=== PATIENT | male | born 1965 | race Caucasian/White ===

== ENCOUNTER 2019-10-17 02:15 | Observation (INO) | payer OTHER ==
[~2019-10-17] VITALS: Ht 182.9 cm; Wt 123.9 kg
--- NOTE | 2019-10-17 02:39 | NUR ---
PT CAME IN C/O FEELING "HEAVY HEARTBEAT" AFTER PLUGGING IN PD, ALSO FELT SOB. PLACED VITALS SIGNS MONITORING, SPOUSE AT BEDSIDE, SAFETY PRECAUTIONS IN PLACE.
[2019-10-17] MEDS ORDERED: ASPI-496 PO (02:45)
[2019-10-17] MEDS ORDERED: FURO20TA3 PO (02:45)
[2019-10-17] MEDS ORDERED: PLAVI (02:45)
[2019-10-17] MEDS ORDERED: CARV25TA12 PO ×2 (02:45→02:49)
[2019-10-17] MEDS ORDERED: POTASSIUM PO (02:45)
[2019-10-17] MEDS ORDERED: LOSA25TA25 PO (02:49)
[2019-10-17] MEDS ORDERED: CALCIT (02:49)
[2019-10-17] MEDS ORDERED: INSU100V35 SQ (02:49)
[2019-10-17] MEDS ORDERED: ATOR40TA78 PO (02:49)
[2019-10-17] MEDS ORDERED: CALCITRIOL PO (02:49)
[2019-10-17] MEDS ORDERED: PLAVIX PO (02:49)
[2019-10-17] MEDS ORDERED: SODIUM CHLORIDE FLUSH 10ML SYR IVF ONE (03:30)
[2019-10-17 03:43] LABS: BASOPHILS # (AUTO) 0.05 x10^3/uL (0-0.1); BASOPHILS % (AUTO) 0 % (0-1); EOSINOPHILS % (AUTO) 3 % (1-7); LYMPHOCYTES # (AUTO) 1.25 x10^3/uL (1-3.4); LYMPHOCYTES % (AUTO) 10 % (22-44); MD NO; MEAN CORPUSCULAR HEMOGLOBIN 31.1 pg (27.5-34.5); MEAN CORPUSCULAR HGB CONC 32.1 g/dL (33.2-36.2); MEAN PLATELET VOLUME 8.4 fL (7.4-10.4); MONOCYTES # (AUTO) 0.71 x10^3/uL (0.2-0.8); MONOCYTES % (AUTO) 6 % (2-9); NEUTROPHILS # (AUTO) 9.76 x10^3/uL (1.8-6.8); NEUTROPHILS % (AUTO) 81 % (42-75); PLATELET COUNT 335 x10^3/uL (130-400); RED BLOOD COUNT 2.64 x10^6/uL (4.38-5.82); RED CELL DISTRIBUTION WIDTH 18.1 % (9.4-14.8)
[2019-10-17 03:48] LABS: ALANINE AMINOTRANSFERASE 32 U/L (12-78); ALBUMIN 2.8 g/dL (3.4-5.0); ANION GAP 11 mmol/L (5-15); CALCIUM 9.7 mg/dL (8.5-10.1); CHLORIDE 96 mmol/L (98-107)
[2019-10-17 03:53] LABS: ALKALINE PHOSPHATASE 98 U/L (45-117); BILIRUBIN,TOTAL 0.3 mg/dL (0.2-1.0); TOTAL PROTEIN 7.6 g/dL (6.4-8.2); TROPONIN I 0.076 ng/mL (0.000-0.045)
--- NOTE | 2019-10-17 04:28 | NUR ---
PT RESTING ON GURNEY, NO ACUTE DISTRESS NOTED, SAFETY PRECAUTIONS IMPLEMENTED. SPOUSE AT BEDSIDE.
[2019-10-17] MEDS ORDERED: POLYETHYLENE GLYCOL 17 GM PACKET PO PRN (05:00)
[2019-10-17] MEDS ORDERED: ONDANSETRON 2MG/ML, 2ML IVPush PRN (05:00)
[2019-10-17] MEDS ORDERED: ACETAMINOPHEN 325 MG TABLET PO PRN (05:00)
[2019-10-17] MEDS ORDERED: hydrALAzine 20 MG/ML, 1ML IVPush PRN (05:00)
[2019-10-17] MEDS ORDERED: morphine SULFATE 10 MG/ML, 1ML IVPush PRN (05:00)
--- NOTE | 2019-10-17 05:17 | NUR ---
REPORT GIVEN TO [facility].
[2019-10-17 05:33] LABS: TROPONIN I 0.072 ng/mL (0.000-0.045)
[2019-10-17 05:42] VITALS: BP 127/66
[2019-10-17] MEDS: HEPARIN 5,000 UNITS/ML, 1ML SQ SCH ×3 (05:53→21:56)
[2019-10-17 05:55] VITALS: BP 127/66
[2019-10-17 07:29] VITALS: BP 124/74
[2019-10-17] MEDS ORDERED: REGADENOSON 0.4 MG/5 ML SYRINGE ONE (08:02)
[2019-10-17] MEDS: PANTOPROZOLE 40MG TABLET PO SCH (09:35)
[2019-10-17] MEDS: ASPIRIN 81 MG TABLET EC PO SCH (09:36)
[2019-10-17] MEDS: CARVEDILOL 12.5 MG TABLET PO SCH ×2 (09:37→21:56)
[2019-10-17] MEDS: FUROSEMIDE 40 MG TABLET PO SCH ×2 (09:37→21:55)
[2019-10-17] MEDS: INSULIN LISPRO 100 UNITS/ML, PEN SQ-INSULIN SCH ×4 (09:39→21:57)
[2019-10-17 11:17] LABS: TROPONIN I 0.053 ng/mL (0.000-0.045)
[2019-10-17 14:51] VITALS: BP 127/74
[2019-10-17] MEDS ORDERED: CALC667C PO (17:23)
[2019-10-17] MEDS: CALCIUM ACETATE 667 MG CAPSULE PO SCH (18:24)
[2019-10-17 19:56] VITALS: BP 152/83
[2019-10-17] MEDS ORDERED: DARBEPOETIN 100 MCG/ML SQ SCH (20:00)
[2019-10-17] MEDS ORDERED: POTASSIUM CHLORIDE 20 MEQ TAB.ER.PRT PO ONE (20:00)
[2019-10-17 20:59] VITALS: BP 151/79
[2019-10-17] MEDS ORDERED: ATORVASTATIN 80 MG TABLET PO SCH (21:00)
[2019-10-17] MEDS ORDERED: INSULIN DEGLUDEC 65 UNIT SQ SCH (21:00)
[2019-10-17] MEDS ORDERED: LOSARTAN 25MG TABLET PO SCH (21:00)
[2019-10-18 00:21] VITALS: BP 137/69
[2019-10-18] MEDS: HEPARIN 5,000 UNITS/ML, 1ML SQ SCH (05:51)
[2019-10-18 06:24] LABS: BASOPHILS # (AUTO) 0.04 x10^3/uL (0-0.1); BASOPHILS % (AUTO) 0 % (0-1); EOSINOPHILS # (AUTO) 0.24 x10^3/uL (0-0.4); EOSINOPHILS % (AUTO) 2 % (1-7); LYMPHOCYTES # (AUTO) 1.04 x10^3/uL (1-3.4); LYMPHOCYTES % (AUTO) 10 % (22-44); MD NO; MEAN CORPUSCULAR HEMOGLOBIN 31.5 pg (27.5-34.5); MEAN CORPUSCULAR HGB CONC 32.3 g/dL (33.2-36.2); MEAN CORPUSCULAR VOLUME 97.3 fL (81-97); MEAN PLATELET VOLUME 8.5 fL (7.4-10.4); MONOCYTES # (AUTO) 0.53 x10^3/uL (0.2-0.8); MONOCYTES % (AUTO) 5 % (2-9); NEUTROPHILS # (AUTO) 8.66 x10^3/uL (1.8-6.8); NEUTROPHILS % (AUTO) 82 % (42-75); PLATELET COUNT 334 x10^3/uL (130-400); RED BLOOD COUNT 2.53 x10^6/uL (4.38-5.82); RED CELL DISTRIBUTION WIDTH 18.8 % (9.4-14.8)
[2019-10-18 06:36] LABS: ANION GAP 11 mmol/L (5-15); CALCIUM 9.3 mg/dL (8.5-10.1); CHLORIDE 96 mmol/L (98-107)
[2019-10-18 06:43] LABS: % IRON SATURATION 36 % (20-55); IRON LEVEL 50 mcg/dL (65-175); TOTAL IRON BINDING CAPACITY 140 mcg/dL (250-450)
[2019-10-18 06:55] VITALS: BP 135/77
[2019-10-18] MEDS: CALCIUM ACETATE 667 MG CAPSULE PO SCH ×2 (08:25→13:53)
[2019-10-18] MEDS ORDERED: CLOPIDOGREL 75 MG TABLET PO SCH (09:00)
[2019-10-18] MEDS ORDERED: INSULIN GLARGINE 100 UNITS/ML, PEN SQ-INSULIN SCH (09:00)
[2019-10-18] MEDS ORDERED: POTASSIUM CHLORIDE 20 MEQ TAB.ER.PRT PO SCH (09:00)
[2019-10-18] MEDS: PANTOPROZOLE 40MG TABLET PO SCH (09:37)
[2019-10-18] MEDS: ASPIRIN 81 MG TABLET EC PO SCH (09:37)
[2019-10-18] MEDS: CARVEDILOL 12.5 MG TABLET PO SCH (09:37)
[2019-10-18] MEDS: FUROSEMIDE 40 MG TABLET PO SCH (09:38)
[2019-10-18] MEDS: INSULIN LISPRO 100 UNITS/ML, PEN SQ-INSULIN SCH ×2 (09:41→13:53)
[2019-10-18 12:51] VITALS: BP 138/78
[2019-10-18] MEDS ORDERED: CALC667C PO (16:19)
[2019-10-18] MEDS ORDERED: CALCITRIOL 0.25 MCG CAPSULE PO SCH (21:00)
[2019-10-18] MEDS ORDERED: LOSARTAN 25MG TABLET PO SCH (21:00)
[2019-10-21] MEDS ORDERED: CALCITRIOL 0.25 MCG CAPSULE PO SCH (21:00)
[2019-10-23] MEDS ORDERED: CALCITRIOL 0.25 MCG CAPSULE PO SCH (18:00)
== END 2019-10-18 17:18 | disposition home or self-care (01) ==
LOC: ED 04:37 → EDIP 05:16 → INTOOBSV 05:16 → 4WST 05:31 → DCLOUNGE 10-18 17:01
PROVIDERS: ADMIT Hospitalist; ATTEND Hospitalist
DX: R07.9 Chest pain, unspecified (principal); E11.22 Type 2 diabetes mellitus with diabetic chronic kidney disease; E11.65 Type 2 diabetes mellitus with hyperglycemia; E78.5 Hyperlipidemia, unspecified; I50.43 Acute on chronic combined systolic (congestive) and diastolic (congestive) heart failure; E87.6 Hypokalemia; E88.89 Other specified metabolic disorders; D63.1 Anemia in chronic kidney disease; I21.9 Acute myocardial infarction, unspecified; I13.2 Hypertensive heart and chronic kidney disease with heart failure and with stage 5 chronic kidney disease, or end stage renal disease; I25.10 Atherosclerotic heart disease of native coronary artery without angina pectoris; I25.5 Ischemic cardiomyopathy; N18.6 End stage renal disease; Z79.4 Long term (current) use of insulin; Z99.2 Dependence on renal dialysis; Z95.1 Presence of aortocoronary bypass graft
CPT/HCPCS: 36415; 71045; 78452; 80048; 80053; 82306; 82728; 82962; 83036; 83540; 83550; 83735; 83880; 83970; 84100; 84484; 85025; 86704; 86705; 87340; 93005; 93017; 96372; 99285; A9502; C8929; C9898; G0378; J1644; J1815; J2785; Q9957; 90945

== ENCOUNTER 2020-01-29 08:48 | Day surgery (SDC) | payer OTHER ==
[2020-01-27 10:50] LABS: BASOPHILS # (AUTO) 0.04 x10^3/uL (0-0.1); BASOPHILS % (AUTO) 0 % (0-1); EOSINOPHILS % (AUTO) 2 % (1-7); LYMPHOCYTES # (AUTO) 1.09 x10^3/uL (1-3.4); LYMPHOCYTES % (AUTO) 10 % (22-44); MD NO; MEAN CORPUSCULAR HEMOGLOBIN 29.8 pg (27.5-34.5); MEAN CORPUSCULAR VOLUME 93.1 fL (81-97); MEAN PLATELET VOLUME 7.9 fL (7.4-10.4); MONOCYTES # (AUTO) 0.68 x10^3/uL (0.2-0.8); MONOCYTES % (AUTO) 6 % (2-9); NEUTROPHILS # (AUTO) 9.47 x10^3/uL (1.8-6.8); NEUTROPHILS % (AUTO) 83 % (42-75); PLATELET COUNT 353 x10^3/uL (130-400); RED BLOOD COUNT 3.72 x10^6/uL (4.38-5.82); RED CELL DISTRIBUTION WIDTH 19.4 % (9.4-14.8)
[2020-01-27 11:00] LABS: INTERNATIONAL NORMALIZED RATIO 0.97 (0.93-1.1); PROTHROMBIN TIME 10.3 Seconds (9.6-11.5)
[2020-01-27 11:02] LABS: ALANINE AMINOTRANSFERASE 108 U/L (12-78); ALBUMIN 2.5 g/dL (3.4-5.0); ANION GAP 12 mmol/L (5-15); CALCIUM 10.4 mg/dL (8.5-10.1); CHLORIDE 96 mmol/L (98-107); CREATININE 8.95 mg/dL (0.7-1.3)
[2020-01-27 11:04] LABS: ALKALINE PHOSPHATASE 161 U/L (45-117); BILIRUBIN,TOTAL 0.4 mg/dL (0.2-1.0); TOTAL PROTEIN 7.8 g/dL (6.4-8.2)
[~2020-01-29] VITALS: Ht 182.9 cm; Wt 113.0 kg
[~2020-01-29 08:48] MED LIST: ASPI-496 PO; ATOR40TA78 PO; CALC0.25 PO; CALC667C PO; CALCIT; CALCITRIOL PO; CARV25TA12 PO; CLOP75TA52 PO; ERGO500017 PO; FURO20TA3 PO; INSU100V35 SQ; LOSA25TA25 PO; PLAVI; PLAVIX PO; POTA20TA89 PO; POTASSIUM PO
[2020-01-29] MEDS ORDERED: LACTATED RINGERS 1,000 ML IV SCH (09:32)
[2020-01-29 09:36] VITALS: BP 151/96
[2020-01-29] MEDS ORDERED: CHLORHEXIDINE 15 ML UDC MM ONE (10:00)
[2020-01-29] MEDS ORDERED: FENTANYL PF 100 MCG/2ML ONE (10:31)
[2020-01-29] MEDS ORDERED: MIDAZOLAM 1 MG/ML, 2ML ONE (10:31)
[2020-01-29] MEDS ORDERED: LIDOCAINE 1%, 20ML ONE (10:39)
[2020-01-29] MEDS ORDERED: BUPIVACAINE 0.25% ONE (10:39)
[2020-01-29] MEDS ORDERED: PROPOFOL 10 MG/ML, 20ML ONE (11:43)
[2020-01-29] MEDS ORDERED: FENTANYL PF 100 MCG/2ML IV PRN (12:00)
[2020-01-29] MEDS ORDERED: PROMETHAZINE 25 MG/ML, 1ML IVPush PRN (12:00)
[2020-01-29] MEDS ORDERED: HYDROmorphone 1 MG/ML, 1ML INJ IVPush PRN (12:00)
[2020-01-29] MEDS ORDERED: LABETALOL 5MG/ML, 20ML IV PRN (12:00)
[2020-01-29] MEDS ORDERED: hydrALAzine 20 MG/ML, 1ML IV PRN (12:00)
[2020-01-29] MEDS ORDERED: HALOPERIDOL 5 MG/ML IV PRN (12:00)
[2020-01-29] MEDS ORDERED: OXYcodone 5 MG/5 ML ORAL.SOL UDC PO PRN (12:00)
[2020-01-29] MEDS ORDERED: DIPHENHYDRAMINE 50 MG/ML, 1ML IVPush PRN (12:00)
[2020-01-29] MEDS ORDERED: MEPERIDINE/PF 25MG/0.5ML IVPush PRN (12:00)
== END 2020-01-29 13:25 | disposition home or self-care (01) ==
LOC: OUT 08:48
PROVIDERS: ATTEND Orthopaedic Surgery
DX: E83.59 Other disorders of calcium metabolism (principal); Z11.59 Encounter for screening for other viral diseases; E11.22 Type 2 diabetes mellitus with diabetic chronic kidney disease; I12.0 Hypertensive chronic kidney disease with stage 5 chronic kidney disease or end stage renal disease; N18.6 End stage renal disease; I25.10 Atherosclerotic heart disease of native coronary artery without angina pectoris; E78.5 Hyperlipidemia, unspecified; Z79.01 Long term (current) use of anticoagulants; Z79.82 Long term (current) use of aspirin; Z79.84 Long term (current) use of oral hypoglycemic drugs; Z79.899 Other long term (current) drug therapy; Z91.018 Allergy to other foods; Z95.1 Presence of aortocoronary bypass graft; Z99.2 Dependence on renal dialysis; Z98.890 Other specified postprocedural states; Z82.49 Family history of ischemic heart disease and other diseases of the circulatory system
CPT/HCPCS: 26115; 36415; 80053; 82962; 85025; 85610; 85730; 87635; 88305; 93005; J2250; J2704; J3010; J3490; J7120; U0001

== ENCOUNTER → 2020-09-17 | Outpatient (CLI) | payer OTHER ==
[~2020-09-17] MED LIST changes: +ASPI81TA45 PO; +EPO SC; +FAMO-79 PO; +LIRA0.6P SC
[2020-09-17 16:34] LABS: ALANINE AMINOTRANSFERASE 54 U/L (12-78); ALBUMIN 2.3 g/dL (3.4-5.0); ANION GAP 8 mmol/L (5-15); CALCIUM 8.7 mg/dL (8.5-10.1); CHLORIDE 96 mmol/L (98-107); CREATININE 7.95 mg/dL (0.7-1.3)
[2020-09-17 16:37] LABS: ALKALINE PHOSPHATASE 168 U/L (45-117); BILIRUBIN,TOTAL 0.3 mg/dL (0.2-1.0); TOTAL PROTEIN 7.1 g/dL (6.4-8.2)
== END | disposition home or self-care (01) ==
LOC: STAR 14:54
PROVIDERS: ATTEND Orthopaedic Surgery
DX: Z01.818 Encounter for other preprocedural examination (principal); E83.59 Other disorders of calcium metabolism; I44.7 Left bundle-branch block, unspecified; Z20.822 Contact with and (suspected) exposure to COVID-19
CPT/HCPCS: 80053; 87635; 93005

== ENCOUNTER 2021-01-30 02:02 | Emergency (ER) | payer OTHER ==
[~2021-01-30] VITALS: Ht 182.9 cm; Wt 112.4 kg
[~2021-01-30 02:02] MED LIST changes: +CALC200T3 PO; +LANT500T PO
--- NOTE | 2021-01-30 02:23 | NUR ---
PT BIB [facility], PT STARTED KEFLEX LAST NIGHT AT 2100, AROUND 0000 TODAY PT STARTED FEELING ITCHY AND NOTICED RASH. PT TOOK 50 MG OF BENADRYL AT HOME, PT STARTED FEELING TIGHTNESS WHILE BREATHING. PT ON KIANA, EKG PERFORMED, GOWN ON AND PLACED ON CONTINUOUS MONITORING.
[2021-01-30] MEDS ORDERED: methylPREDNISolone SOD SUCC 125 MG/2 ML IVPush ONE (02:30)
[2021-01-30] MEDS ORDERED: FAMOTIDINE 20 MG/2 ML IVPush ONE (02:30)
[2021-01-30] MEDS ORDERED: FAMOTIDINE 20 MG/2 ML ONE (02:54)
[2021-01-30] MEDS ORDERED: EPINEPHRINE 1 MG/ML, 1ML ONE (02:54)
[2021-01-30] MEDS ORDERED: methylPREDNISolone SOD SUCC 125 MG/2 ML ONE (02:54)
[2021-01-30] MEDS ORDERED: ALBUTEROL SULFATE 2.5 MG/3 ML ONE (02:54)
[2021-01-30] MEDS ORDERED: ALBUTEROL SULFATE 2.5 MG/3 ML NPPB ONE (03:00)
[2021-01-30] MEDS ORDERED: SODIUM CHLORIDE FLUSH 10ML SYR IVF ONE (03:00)
[2021-01-30] MEDS ORDERED: SODIUM CHLORIDE 0.9% 1,000ML IVBOLUS ONE (03:00)
[2021-01-30] MEDS ORDERED: EPINEPHRINE 1 MG/ML, 1ML SQ ONE (03:00)
[2021-01-30 03:09] LABS: ALANINE AMINOTRANSFERASE 43 U/L (12-78); ALBUMIN 1.9 g/dL (3.4-5.0); ANION GAP 18 mmol/L (5-15); CHLORIDE 89 mmol/L (98-107); CREATININE 7.35 mg/dL (0.7-1.3)
[2021-01-30 03:13] LABS: ALKALINE PHOSPHATASE 172 U/L (45-117); BILIRUBIN,TOTAL 0.5 mg/dL (0.2-1.0); TOTAL PROTEIN 6.8 g/dL (6.4-8.2); TROPONIN I 0.055 ng/mL (0.000-0.045)
[2021-01-30 03:14] LABS: BASOPHILS % (AUTO) 1 % (0-1); EOSINOPHILS % (AUTO) 1 % (1-7); LYMPHOCYTES % (AUTO) 11 % (22-44); MEAN CORPUSCULAR HEMOGLOBIN 29.2 pg (27.5-34.5); MEAN CORPUSCULAR HGB CONC 33.2 g/dL (33.2-36.2); MONOCYTES % (AUTO) 3 % (2-9); NEUTROPHILS % (AUTO) 85 % (42-75); PLATELET COUNT 478 x10^3/uL (130-400); RED BLOOD COUNT 4.03 x10^6/uL (4.38-5.82)
[2021-01-30 03:16] VITALS: BP 107/63
[2021-01-30] MEDS ORDERED: ASPIRIN 325 MG TABLET ONE (03:36)
--- NOTE | 2021-01-30 03:50 | NUR ---
ERP AT BEDSIDE, PT WANTS TO GO HOME, ERP CANCELED ASPIRIN ORDER.
[2021-01-30] MEDS ORDERED: ASPIRIN 325 MG TABLET PO ONE (04:00)
--- NOTE | 2021-01-30 04:04 | NUR ---
Mario given discharge instructions and they have confirmed that they understand the instructions. Patient ambulatory with steady gait.
== END 2021-01-30 04:06 | disposition home or self-care (01) ==
LOC: ED 03:15
DX: R07.2 Precordial pain (principal); R06.00 Dyspnea, unspecified; T36.1X5A Adverse effect of cephalosporins and other beta-lactam antibiotics, initial encounter; J98.01 Acute bronchospasm; L50.0 Allergic urticaria; I49.3 Ventricular premature depolarization; I25.2 Old myocardial infarction; I50.9 Heart failure, unspecified; Z95.1 Presence of aortocoronary bypass graft
CPT/HCPCS: 36415; 71045; 80053; 84484; 85025; 93005; 94640; 96361; 96372; 96374; 96375; 99285; J0171; J2930; J7030; J7613

== ENCOUNTER 2021-02-01 11:23 | Inpatient (IN) | payer OTHER ==
[~2021-02-01] VITALS: Ht 182.9 cm; Wt 133.8 kg
[2021-02-01 12:52] LABS: BASOPHILS % (AUTO) 0 % (0-1); EOSINOPHILS % (AUTO) 1 % (1-7); LYMPHOCYTES % (AUTO) 7 % (22-44); MEAN PLATELET VOLUME 7.8 fL (7.4-10.4); MONOCYTES % (AUTO) 6 % (2-9); NEUTROPHILS % (AUTO) 87 % (42-75); PLATELET COUNT 391 x10^3/uL (130-400); RED BLOOD COUNT 3.17 x10^6/uL (4.38-5.82); RED CELL DISTRIBUTION WIDTH 17.4 % (9.4-14.8)
[2021-02-01 13:00] LABS: ANION GAP 13 mmol/L (5-15); CALCIUM 7.5 mg/dL (8.5-10.1); CHLORIDE 92 mmol/L (98-107)
[2021-02-01] MEDS ORDERED: PIPERACILLIN/TAZO 3.375 GM in DEXTROSE 5% 50 ML IVPB ONE (13:00)
[2021-02-01 13:03] LABS: ALANINE AMINOTRANSFERASE 46 U/L (12-78); ALKALINE PHOSPHATASE 139 U/L (45-117); BILIRUBIN,TOTAL 0.4 mg/dL (0.2-1.0); CREATININE 7.36 mg/dL (0.7-1.3); TOTAL PROTEIN 6.5 g/dL (6.4-8.2)
[2021-02-01 13:10] LABS: INTERNATIONAL NORMALIZED RATIO 1.22 (0.93-1.1)
[2021-02-01 13:47] LABS: HCT (SEDRATE) 27.8 % (39.2-51.8)
[2021-02-01] MEDS ORDERED: PHARMACY MAY ADJ FOR RENAL FX MC PRN (14:00)
[2021-02-01] MEDS ORDERED: DOCUSATE 100 MG CAPSULE PO PRN (14:00)
[2021-02-01] MEDS ORDERED: MELATONIN 5 MG TABLET PO PRN (14:00)
[2021-02-01] MEDS ORDERED: BISACODYL 10 MG SUPP PR PRN (14:00)
[2021-02-01] MEDS ORDERED: POLYETHYLENE GLYCOL 17 GM PACKET PO PRN (14:00)
[2021-02-01] MEDS ORDERED: ONDANSETRON ODT 4 MG PO PRN (14:00)
[2021-02-01] MEDS ORDERED: DEXTROSE 50%, 50ML SYRINGE IVPush PRN (15:30)
[2021-02-01] MEDS ORDERED: DEXTROSE 4 GM TAB.CHEW PO PRN (15:30)
[2021-02-01] MEDS ORDERED: GLUCAGON 1 MG IM PRN (15:30)
[2021-02-01] MEDS ORDERED: CINA30TA6 PO (15:56)
[2021-02-01] MEDS ORDERED: CALC0.5C2 PO (15:56)
[2021-02-01] MEDS: INSULIN LISPRO 100 UNITS/ML, PEN SQ-INSULIN SCH ×2 (16:00→21:00)
[2021-02-01 16:45] VITALS: BP 123/71
[2021-02-01] MEDS: ERGOCALCIFEROL 50,000 UNIT CAPSULE PO SCH (17:33)
[2021-02-01] MEDS: CALCIUM CARBONATE 500 MG TAB.CHEW PO SCH (17:33)
[2021-02-01] MEDS: HEPARIN 5,000 UNITS/ML, 1ML SQ SCH (17:33)
[2021-02-01] MEDS: SEVELAMER CARBONATE 800MG TAB PO SCH (18:07)
[2021-02-01 19:34] VITALS: BP 117/70
[2021-02-01 20:50] VITALS: BP 117/68
[2021-02-01] MEDS: ATORVASTATIN 80 MG TABLET PO SCH (20:54)
[2021-02-01] MEDS: CALCITRIOL 0.25 MCG CAPSULE PO SCH (20:54)
[2021-02-01] MEDS: CARVEDILOL 12.5 MG TABLET PO SCH (20:54)
[2021-02-01] MEDS: LOSARTAN 25MG TABLET PO SCH (20:55)
[2021-02-01] MEDS: SODIUM CHLORIDE FLUSH 10ML SYR IVF SCH (20:55)
[2021-02-01] MEDS: ACETAMINOPHEN 325 MG TABLET PO PRN (20:56)
[2021-02-01] MEDS: INSULIN GLARGINE 100 UNITS/ML, PEN SQ-INSULIN SCH (21:00)
[2021-02-01] MEDS ORDERED: PIPERACILLIN/TAZO 3.375 GM in DEXTROSE 5% 50 ML IVPB SCH (21:00)
[2021-02-01] MEDS: PIPERACILLIN/TAZO 2.25 GM in DEXTROSE 5% 50 ML IVPB SCH (21:17)
[2021-02-02] MEDS ORDERED: GENTAMICIN CRM 0.1%, 30GM TP PRN (00:30)
[2021-02-02] MEDS: HEPARIN 5,000 UNITS/ML, 1ML SQ SCH ×3 (01:38→20:51)
[2021-02-02 01:59] VITALS: BP 138/80
[2021-02-02] MEDS: PIPERACILLIN/TAZO 2.25 GM in DEXTROSE 5% 50 ML IVPB SCH ×3 (04:52→20:48)
[2021-02-02 05:13] LABS: BASOPHILS % (AUTO) 0 % (0-1); EOSINOPHILS % (AUTO) 2 % (1-7); LYMPHOCYTES % (AUTO) 5 % (22-44); MEAN CORPUSCULAR HEMOGLOBIN 28.8 pg (27.5-34.5); MEAN CORPUSCULAR HGB CONC 32.7 g/dL (33.2-36.2); MEAN PLATELET VOLUME 8.1 fL (7.4-10.4); MONOCYTES % (AUTO) 5 % (2-9); NEUTROPHILS % (AUTO) 87 % (42-75); PLATELET COUNT 355 x10^3/uL (130-400); RED BLOOD COUNT 3.13 x10^6/uL (4.38-5.82); RED CELL DISTRIBUTION WIDTH 17.9 % (9.4-14.8)
[2021-02-02 05:25] LABS: % IRON SATURATION 27 % (20-55); ANION GAP 13 mmol/L (5-15); CALCIUM 7.5 mg/dL (8.5-10.1); CHLORIDE 92 mmol/L (98-107); CREATININE 7.58 mg/dL (0.7-1.3); IRON LEVEL 30 mcg/dL (65-175); TOTAL IRON BINDING CAPACITY 112 mcg/dL (250-450)
[2021-02-02] MEDS: INSULIN LISPRO 100 UNITS/ML, PEN SQ-INSULIN SCH ×4 (07:00→20:38)
[2021-02-02 08:32] VITALS: BP 125/73
[2021-02-02] MEDS: SODIUM CHLORIDE FLUSH 10ML SYR IVF SCH ×2 (09:00→20:49)
[2021-02-02] MEDS: CALCITRIOL 0.25 MCG CAPSULE PO SCH ×2 (09:00→20:50)
[2021-02-02] MEDS ORDERED: ARANESP 60 MCG/ML **ESRD SQ SCH (10:30)
[2021-02-02] MEDS: CALCIUM CARBONATE 500 MG TAB.CHEW PO SCH ×3 (11:00→17:34)
[2021-02-02] MEDS: ASPIRIN 81 MG TABLET EC PO SCH (11:11)
[2021-02-02] MEDS: CARVEDILOL 12.5 MG TABLET PO SCH ×2 (11:12→21:20)
[2021-02-02] MEDS: FAMOTIDINE 20 MG TABLET PO SCH (11:12)
[2021-02-02] MEDS: CLOPIDOGREL 75 MG TABLET PO SCH (11:12)
[2021-02-02] MEDS: LOSARTAN 25MG TABLET PO SCH ×2 (11:14→21:20)
[2021-02-02] MEDS: SEVELAMER CARBONATE 800MG TAB PO SCH ×3 (11:14→17:35)
[2021-02-02 14:41] VITALS: BP 124/68
[2021-02-02 19:27] VITALS: BP 127/80
[2021-02-02] MEDS: INSULIN GLARGINE 100 UNITS/ML, PEN SQ-INSULIN SCH (20:38)
[2021-02-02] MEDS: ATORVASTATIN 80 MG TABLET PO SCH (20:50)
[2021-02-02 21:03] VITALS: BP 145/80
[2021-02-02 22:17] LABS: CLOSTRIDIUM DIFFICILE ANTIGEN NEGATIVE; CLOSTRIDIUM DIFFICILE TOXIN NEGATIVE (Negative)
[2021-02-02] MEDS ORDERED: LOPERAMIDE 2 MG CAPSULE PO ONE (23:00)
[2021-02-03 00:52] VITALS: BP 151/65
[2021-02-03] MEDS ORDERED: LOPERAMIDE 2 MG CAPSULE PO ONE (02:30)
[2021-02-03] MEDS: PIPERACILLIN/TAZO 2.25 GM in DEXTROSE 5% 50 ML IVPB SCH ×3 (04:50→21:59)
[2021-02-03] MEDS: HEPARIN 5,000 UNITS/ML, 1ML SQ SCH ×3 (04:52→21:00)
[2021-02-03 05:16] LABS: BASOPHILS % (AUTO) 1 % (0-1); EOSINOPHILS % (AUTO) 2 % (1-7); LYMPHOCYTES % (AUTO) 6 % (22-44); MEAN CORPUSCULAR HEMOGLOBIN 29.3 pg (27.5-34.5); MEAN CORPUSCULAR HGB CONC 32.9 g/dL (33.2-36.2); MEAN PLATELET VOLUME 7.9 fL (7.4-10.4); MONOCYTES % (AUTO) 5 % (2-9); NEUTROPHILS % (AUTO) 87 % (42-75); PLATELET COUNT 326 x10^3/uL (130-400); RED BLOOD COUNT 2.96 x10^6/uL (4.38-5.82); RED CELL DISTRIBUTION WIDTH 18.2 % (9.4-14.8)
[2021-02-03 05:18] LABS: ALBUMIN 1.7 g/dL (3.4-5.0); ANION GAP 13 mmol/L (5-15); CALCIUM 7.5 mg/dL (8.5-10.1); CHLORIDE 94 mmol/L (98-107)
[2021-02-03 05:22] LABS: ALANINE AMINOTRANSFERASE 32 U/L (12-78); ALKALINE PHOSPHATASE 121 U/L (45-117); BILIRUBIN,TOTAL 0.4 mg/dL (0.2-1.0); TOTAL PROTEIN 5.9 g/dL (6.4-8.2)
[2021-02-03] MEDS ORDERED: POTASSIUM CHLORIDE 20 MEQ TAB.ER.PRT PO ONE ×2 (06:07→06:30)
[2021-02-03 07:11] VITALS: BP 122/79
[2021-02-03] MEDS: INSULIN LISPRO 100 UNITS/ML, PEN SQ-INSULIN SCH ×4 (07:49→21:54)
[2021-02-03] MEDS: GENTAMICIN CRM 0.1%, 30GM TP SCH (09:00)
[2021-02-03] MEDS: LOSARTAN 25MG TABLET PO SCH ×2 (09:11→21:00)
[2021-02-03] MEDS: CALCIUM CARBONATE 500 MG TAB.CHEW PO SCH ×3 (09:11→17:59)
[2021-02-03] MEDS: FAMOTIDINE 20 MG TABLET PO SCH (09:12)
[2021-02-03] MEDS: ASPIRIN 81 MG TABLET EC PO SCH ×2 (09:12→13:07)
[2021-02-03] MEDS: CLOPIDOGREL 75 MG TABLET PO SCH ×2 (09:12→13:07)
[2021-02-03] MEDS: SEVELAMER CARBONATE 800MG TAB PO SCH ×3 (10:13→17:59)
[2021-02-03] MEDS: CALCITRIOL 0.25 MCG CAPSULE PO SCH ×2 (10:13→22:00)
[2021-02-03] MEDS: CARVEDILOL 12.5 MG TABLET PO SCH ×2 (10:14→21:00)
[2021-02-03] MEDS: SODIUM CHLORIDE FLUSH 10ML SYR IVF SCH ×2 (10:15→21:59)
[2021-02-03 12:32] VITALS: BP 108/66
[2021-02-03] MEDS ORDERED: MIDAZOLAM 1 MG/ML, 2ML ONE (13:44)
[2021-02-03] MEDS ORDERED: FENTANYL PF 100 MCG/2ML ONE ×2 (13:44→16:35)
[2021-02-03] MEDS ORDERED: LIDOCAINE 2%, 20ML ONE (13:54)
[2021-02-03] MEDS ORDERED: HEPARIN 1,000 UNITS/ML, 10ML ONE (15:14)
[2021-02-03] MEDS: LACTOBACILLUS CHEW TABLET PO SCH ×2 (17:59→21:59)
[2021-02-03] MEDS: ACETAMINOPHEN 325 MG TABLET PO PRN (20:20)
[2021-02-03 20:37] VITALS: BP 97/43
[2021-02-03] MEDS: INSULIN GLARGINE 100 UNITS/ML, PEN SQ-INSULIN SCH (21:55)
[2021-02-03] MEDS: ATORVASTATIN 80 MG TABLET PO SCH (21:59)
[2021-02-04 02:02] VITALS: BP 107/68
[2021-02-04] MEDS: HEPARIN 5,000 UNITS/ML, 1ML SQ SCH ×3 (05:00→20:24)
[2021-02-04 05:10] LABS: HCT (SEDRATE) 24.3 % (39.2-51.8)
[2021-02-04 05:12] LABS: BASOPHILS % (AUTO) 1 % (0-1); EOSINOPHILS % (AUTO) 2 % (1-7); LYMPHOCYTES % (AUTO) 6 % (22-44); MEAN CORPUSCULAR HEMOGLOBIN 29.3 pg (27.5-34.5); MEAN PLATELET VOLUME 8.1 fL (7.4-10.4); MONOCYTES % (AUTO) 5 % (2-9); NEUTROPHILS % (AUTO) 87 % (42-75); PLATELET COUNT 298 x10^3/uL (130-400); RED CELL DISTRIBUTION WIDTH 18.2 % (9.4-14.8)
[2021-02-04] MEDS: PIPERACILLIN/TAZO 2.25 GM in DEXTROSE 5% 50 ML IVPB SCH ×3 (05:17→20:20)
[2021-02-04 05:26] LABS: ALBUMIN 1.6 g/dL (3.4-5.0); ANION GAP 14 mmol/L (5-15); CALCIUM 7.6 mg/dL (8.5-10.1); CHLORIDE 96 mmol/L (98-107); CREATININE 7.23 mg/dL (0.7-1.3)
[2021-02-04] MEDS: CALCIUM CARBONATE 500 MG TAB.CHEW PO SCH ×3 (07:14→16:29)
[2021-02-04 07:21] VITALS: BP 107/66
[2021-02-04] MEDS: SEVELAMER CARBONATE 800MG TAB PO SCH ×3 (07:28→16:29)
[2021-02-04] MEDS: INSULIN LISPRO 100 UNITS/ML, PEN SQ-INSULIN SCH ×4 (07:37→20:34)
[2021-02-04] MEDS: GENTAMICIN CRM 0.1%, 30GM TP SCH (09:00)
[2021-02-04] MEDS: CALCITRIOL 0.25 MCG CAPSULE PO SCH ×2 (09:00→20:21)
[2021-02-04] MEDS: LOSARTAN 25MG TABLET PO SCH ×2 (09:00→20:22)
[2021-02-04] MEDS: LACTOBACILLUS CHEW TABLET PO SCH ×3 (11:17→20:57)
[2021-02-04] MEDS: CARVEDILOL 12.5 MG TABLET PO SCH ×2 (11:17→20:20)
[2021-02-04] MEDS: FAMOTIDINE 20 MG TABLET PO SCH (11:17)
[2021-02-04] MEDS: ASPIRIN 81 MG TABLET EC PO SCH (11:18)
[2021-02-04] MEDS: CLOPIDOGREL 75 MG TABLET PO SCH (11:18)
[2021-02-04] MEDS: SODIUM CHLORIDE FLUSH 10ML SYR IVF SCH ×2 (11:20→20:21)
[2021-02-04 15:40] VITALS: BP 115/64
[2021-02-04 19:07] VITALS: BP 100/61
[2021-02-04] MEDS: ATORVASTATIN 80 MG TABLET PO SCH (20:20)
[2021-02-04] MEDS: INSULIN GLARGINE 100 UNITS/ML, PEN SQ-INSULIN SCH (20:34)
[2021-02-05 00:29] VITALS: BP 102/62
[2021-02-05] MEDS: HEPARIN 5,000 UNITS/ML, 1ML SQ SCH ×3 (05:02→20:56)
[2021-02-05] MEDS: PIPERACILLIN/TAZO 2.25 GM in DEXTROSE 5% 50 ML IVPB SCH ×3 (05:02→21:30)
[2021-02-05 05:13] LABS: BASOPHILS % (AUTO) 0 % (0-1); EOSINOPHILS % (AUTO) 2 % (1-7); LYMPHOCYTES % (AUTO) 7 % (22-44); MEAN CORPUSCULAR HEMOGLOBIN 28.9 pg (27.5-34.5); MEAN CORPUSCULAR HGB CONC 32.2 g/dL (33.2-36.2); MONOCYTES % (AUTO) 6 % (2-9); NEUTROPHILS % (AUTO) 85 % (42-75); PLATELET COUNT 309 x10^3/uL (130-400); RED CELL DISTRIBUTION WIDTH 18.5 % (9.4-14.8)
[2021-02-05 05:26] LABS: CHLORIDE 94 mmol/L (98-107)
[2021-02-05 05:32] LABS: ALANINE AMINOTRANSFERASE 22 U/L (12-78); ALBUMIN 1.6 g/dL (3.4-5.0); ALKALINE PHOSPHATASE 90 U/L (45-117); ANION GAP 13 mmol/L (5-15); BILIRUBIN,TOTAL 0.5 mg/dL (0.2-1.0); CALCIUM 7.5 mg/dL (8.5-10.1); CREATININE 7.21 mg/dL (0.7-1.3); TOTAL PROTEIN 5.5 g/dL (6.4-8.2)
[2021-02-05 06:47] VITALS: BP 112/66
[2021-02-05] MEDS: CALCIUM CARBONATE 500 MG TAB.CHEW PO SCH ×3 (07:00→16:00)
[2021-02-05] MEDS: INSULIN LISPRO 100 UNITS/ML, PEN SQ-INSULIN SCH ×4 (07:00→21:30)
[2021-02-05] MEDS: SEVELAMER CARBONATE 800MG TAB PO SCH ×3 (07:47→16:42)
[2021-02-05] MEDS: GENTAMICIN CRM 0.1%, 30GM TP SCH (09:00)
[2021-02-05] MEDS: CALCITRIOL 0.25 MCG CAPSULE PO SCH ×2 (09:00→20:56)
[2021-02-05] MEDS ORDERED: POTASSIUM CHLORIDE 20 MEQ TAB.ER.PRT PO ONE (09:00)
[2021-02-05] MEDS: LOSARTAN 25MG TABLET PO SCH ×2 (09:00→20:57)
[2021-02-05] MEDS: SODIUM CHLORIDE FLUSH 10ML SYR IVF SCH ×2 (09:51→20:57)
[2021-02-05] MEDS: CARVEDILOL 12.5 MG TABLET PO SCH ×2 (09:52→20:57)
[2021-02-05] MEDS: LACTOBACILLUS CHEW TABLET PO SCH ×3 (09:54→20:56)
[2021-02-05] MEDS: ASPIRIN 81 MG TABLET EC PO SCH (09:54)
[2021-02-05] MEDS: FAMOTIDINE 20 MG TABLET PO SCH (09:54)
[2021-02-05] MEDS: CLOPIDOGREL 75 MG TABLET PO SCH (09:54)
[2021-02-05 13:23] VITALS: BP 121/70
[2021-02-05 19:11] VITALS: BP 137/77
[2021-02-05] MEDS ORDERED: DIPHENOXYLATE/ATROPINE TABLET PO PRN (20:30)
[2021-02-05] MEDS: ATORVASTATIN 80 MG TABLET PO SCH (20:56)
[2021-02-05] MEDS: INSULIN GLARGINE 100 UNITS/ML, PEN SQ-INSULIN SCH (21:30)
[2021-02-06 00:23] VITALS: BP 132/72
[2021-02-06 04:58] LABS: BASOPHILS % (AUTO) 1 % (0-1); EOSINOPHILS % (AUTO) 4 % (1-7); LYMPHOCYTES % (AUTO) 10 % (22-44); MEAN CORPUSCULAR HEMOGLOBIN 29.7 pg (27.5-34.5); MEAN CORPUSCULAR HGB CONC 33.2 g/dL (33.2-36.2); MEAN PLATELET VOLUME 8.3 fL (7.4-10.4); MONOCYTES % (AUTO) 8 % (2-9); NEUTROPHILS % (AUTO) 77 % (42-75); PLATELET COUNT 272 x10^3/uL (130-400); RED BLOOD COUNT 2.38 x10^6/uL (4.38-5.82)
[2021-02-06 05:01] LABS: ANION GAP 13 mmol/L (5-15); CALCIUM 7.4 mg/dL (8.5-10.1); CHLORIDE 93 mmol/L (98-107)
[2021-02-06 05:02] LABS: CREATININE 7.22 mg/dL (0.7-1.3)
[2021-02-06] MEDS: PIPERACILLIN/TAZO 2.25 GM in DEXTROSE 5% 50 ML IVPB SCH ×3 (05:27→21:44)
[2021-02-06] MEDS: HEPARIN 5,000 UNITS/ML, 1ML SQ SCH ×3 (05:27→21:13)
[2021-02-06 06:49] VITALS: BP 106/64
[2021-02-06] MEDS: INSULIN LISPRO 100 UNITS/ML, PEN SQ-INSULIN SCH ×4 (07:00→21:00)
[2021-02-06] MEDS: CALCIUM CARBONATE 500 MG TAB.CHEW PO SCH ×3 (07:00→16:59)
[2021-02-06] MEDS: SEVELAMER CARBONATE 800MG TAB PO SCH ×3 (07:51→16:59)
[2021-02-06] MEDS: SODIUM CHLORIDE FLUSH 10ML SYR IVF SCH ×2 (07:52→21:13)
[2021-02-06] MEDS: CLOPIDOGREL 75 MG TABLET PO SCH (07:52)
[2021-02-06] MEDS: LACTOBACILLUS CHEW TABLET PO SCH ×3 (07:53→21:13)
[2021-02-06] MEDS: ASPIRIN 81 MG TABLET EC PO SCH (07:58)
[2021-02-06] MEDS: LOSARTAN 25MG TABLET PO SCH ×2 (08:01→21:14)
[2021-02-06] MEDS: CARVEDILOL 12.5 MG TABLET PO SCH ×2 (08:02→21:14)
[2021-02-06] MEDS: FAMOTIDINE 20 MG TABLET PO SCH (08:02)
[2021-02-06] MEDS ORDERED: ARANESP 60 MCG/ML **ESRD SQ SCH (08:14)
[2021-02-06] MEDS: GENTAMICIN CRM 0.1%, 30GM TP SCH (09:00)
[2021-02-06] MEDS: HYDROcodone/APAP 5/325 TABLET PO PRN ×2 (10:27→18:16)
[2021-02-06] MEDS: POTASSIUM CHLORIDE 20 MEQ PACKET PO SCH (12:32)
[2021-02-06 17:09] VITALS: BP 145/82
[2021-02-06] MEDS ORDERED: POTASSIUM CHLORIDE 20 MEQ TAB.ER.PRT PO ONE (18:30)
[2021-02-06 21:00] VITALS: BP 137/58
[2021-02-06] MEDS: INSULIN GLARGINE 100 UNITS/ML, PEN SQ-INSULIN SCH ×2 (21:00→22:40)
[2021-02-06] MEDS: CALCITRIOL 0.25 MCG CAPSULE PO SCH (21:14)
[2021-02-06] MEDS: ATORVASTATIN 80 MG TABLET PO SCH (21:14)
[2021-02-07] MEDS: HYDROcodone/APAP 5/325 TABLET PO PRN ×2 (00:33→16:08)
[2021-02-07 00:35] VITALS: BP 102/51
[2021-02-07] MEDS: HEPARIN 5,000 UNITS/ML, 1ML SQ SCH ×3 (05:04→21:30)
[2021-02-07] MEDS: PIPERACILLIN/TAZO 2.25 GM in DEXTROSE 5% 50 ML IVPB SCH ×3 (05:04→21:30)
[2021-02-07 06:06] LABS: BASOPHILS % (AUTO) 2 % (0-1); EOSINOPHILS % (AUTO) 4 % (1-7); LYMPHOCYTES % (AUTO) 8 % (22-44); MEAN CORPUSCULAR HEMOGLOBIN 29.5 pg (27.5-34.5); MEAN CORPUSCULAR HGB CONC 32.6 g/dL (33.2-36.2); MEAN PLATELET VOLUME 8.1 fL (7.4-10.4); MONOCYTES % (AUTO) 9 % (2-9); NEUTROPHILS % (AUTO) 79 % (42-75); PLATELET COUNT 259 x10^3/uL (130-400); RED BLOOD COUNT 2.31 x10^6/uL (4.38-5.82); RED CELL DISTRIBUTION WIDTH 18.2 % (9.4-14.8)
[2021-02-07 06:14] LABS: ANION GAP 14 mmol/L (5-15); CALCIUM 7.7 mg/dL (8.5-10.1); CHLORIDE 94 mmol/L (98-107); CREATININE 7.21 mg/dL (0.7-1.3)
[2021-02-07] MEDS: CALCIUM CARBONATE 500 MG TAB.CHEW PO SCH ×4 (07:00→16:08)
[2021-02-07] MEDS: INSULIN LISPRO 100 UNITS/ML, PEN SQ-INSULIN SCH ×4 (07:00→21:50)
[2021-02-07] MEDS: SEVELAMER CARBONATE 800MG TAB PO SCH ×3 (07:55→16:39)
[2021-02-07 07:57] VITALS: BP 131/79
[2021-02-07] MEDS: POTASSIUM CHLORIDE 20 MEQ PACKET PO SCH (08:03)
[2021-02-07] MEDS: CLOPIDOGREL 75 MG TABLET PO SCH (08:04)
[2021-02-07] MEDS: SODIUM CHLORIDE FLUSH 10ML SYR IVF SCH ×2 (08:04→21:49)
[2021-02-07] MEDS: LACTOBACILLUS CHEW TABLET PO SCH ×3 (08:04→21:30)
[2021-02-07] MEDS: ASPIRIN 81 MG TABLET EC PO SCH (08:04)
[2021-02-07] MEDS: CARVEDILOL 12.5 MG TABLET PO SCH ×2 (08:05→21:30)
[2021-02-07] MEDS: GENTAMICIN CRM 0.1%, 30GM TP SCH (08:05)
[2021-02-07] MEDS: LOSARTAN 25MG TABLET PO SCH ×2 (08:05→21:49)
[2021-02-07] MEDS: FAMOTIDINE 20 MG TABLET PO SCH (08:05)
[2021-02-07 14:23] VITALS: BP 118/73
[2021-02-07 20:21] VITALS: BP 121/73
[2021-02-07] MEDS: ATORVASTATIN 80 MG TABLET PO SCH (21:30)
[2021-02-07] MEDS: CALCITRIOL 0.25 MCG CAPSULE PO SCH (21:31)
[2021-02-07] MEDS: INSULIN GLARGINE 100 UNITS/ML, PEN SQ-INSULIN SCH (21:49)
[2021-02-08] MEDS: HYDROcodone/APAP 5/325 TABLET PO PRN ×2 (00:24→14:50)
[2021-02-08 00:26] VITALS: BP 98/64
[2021-02-08] MEDS: PIPERACILLIN/TAZO 2.25 GM in DEXTROSE 5% 50 ML IVPB SCH ×4 (05:12→22:13)
[2021-02-08] MEDS: HEPARIN 5,000 UNITS/ML, 1ML SQ SCH ×3 (05:12→21:13)
[2021-02-08 06:46] VITALS: BP 105/63
[2021-02-08] MEDS: INSULIN LISPRO 100 UNITS/ML, PEN SQ-INSULIN SCH ×4 (07:00→21:20)
[2021-02-08] MEDS: CALCIUM CARBONATE 500 MG TAB.CHEW PO SCH ×3 (07:41→16:45)
[2021-02-08] MEDS: SEVELAMER CARBONATE 800MG TAB PO SCH ×3 (07:41→16:44)
[2021-02-08] MEDS: POTASSIUM CHLORIDE 20 MEQ PACKET PO SCH (07:41)
[2021-02-08] MEDS: GENTAMICIN CRM 0.1%, 30GM TP SCH (09:00)
[2021-02-08] MEDS: LOSARTAN 25MG TABLET PO SCH ×2 (09:00→21:20)
[2021-02-08] MEDS: CLOPIDOGREL 75 MG TABLET PO SCH (09:00)
[2021-02-08 09:39] VITALS: BP 113/66
[2021-02-08] MEDS: SODIUM CHLORIDE FLUSH 10ML SYR IVF SCH ×2 (09:39→21:20)
[2021-02-08] MEDS: CARVEDILOL 12.5 MG TABLET PO SCH ×2 (09:40→21:13)
[2021-02-08] MEDS: LACTOBACILLUS CHEW TABLET PO SCH ×3 (09:40→21:13)
[2021-02-08] MEDS: FAMOTIDINE 20 MG TABLET PO SCH (09:40)
[2021-02-08] MEDS: ASPIRIN 81 MG TABLET EC PO SCH (09:40)
[2021-02-08] MEDS: ERGOCALCIFEROL 50,000 UNIT CAPSULE PO SCH (14:49)
[2021-02-08 15:00] VITALS: BP 113/66
[2021-02-08 20:32] VITALS: BP 118/71
[2021-02-08] MEDS: CALCITRIOL 0.25 MCG CAPSULE PO SCH (21:13)
[2021-02-08] MEDS: ATORVASTATIN 80 MG TABLET PO SCH (21:13)
[2021-02-08] MEDS: INSULIN GLARGINE 100 UNITS/ML, PEN SQ-INSULIN SCH (21:20)
[2021-02-09 00:27] VITALS: BP 125/70
[2021-02-09 04:53] LABS: BASOPHILS % (AUTO) 3 % (0-1); EOSINOPHILS % (AUTO) 2 % (1-7); LYMPHOCYTES % (AUTO) 7 % (22-44); MEAN CORPUSCULAR HEMOGLOBIN 29.4 pg (27.5-34.5); MEAN CORPUSCULAR HGB CONC 32.7 g/dL (33.2-36.2); MEAN PLATELET VOLUME 8.2 fL (7.4-10.4); MONOCYTES % (AUTO) 8 % (2-9); NEUTROPHILS % (AUTO) 79 % (42-75); PLATELET COUNT 273 x10^3/uL (130-400); RED BLOOD COUNT 2.47 x10^6/uL (4.38-5.82); RED CELL DISTRIBUTION WIDTH 19.2 % (9.4-14.8)
[2021-02-09 05:07] LABS: CHLORIDE 90 mmol/L (98-107)
[2021-02-09 05:13] LABS: ALBUMIN 1.6 g/dL (3.4-5.0); ANION GAP 13 mmol/L (5-15); CREATININE 7.65 mg/dL (0.7-1.3)
[2021-02-09] MEDS: HEPARIN 5,000 UNITS/ML, 1ML SQ SCH (06:08)
[2021-02-09] MEDS: PIPERACILLIN/TAZO 2.25 GM in DEXTROSE 5% 50 ML IVPB SCH (06:08)
[2021-02-09 06:47] VITALS: BP 131/85
[2021-02-09] MEDS: INSULIN LISPRO 100 UNITS/ML, PEN SQ-INSULIN SCH (07:00)
[2021-02-09] MEDS: SEVELAMER CARBONATE 800MG TAB PO SCH (08:00)
[2021-02-09] MEDS: GENTAMICIN CRM 0.1%, 30GM TP SCH (08:24)
[2021-02-09] MEDS: CARVEDILOL 12.5 MG TABLET PO SCH (08:25)
[2021-02-09] MEDS: LOSARTAN 25MG TABLET PO SCH (08:25)
[2021-02-09] MEDS: CLOPIDOGREL 75 MG TABLET PO SCH (08:25)
[2021-02-09] MEDS: LACTOBACILLUS CHEW TABLET PO SCH (08:25)
[2021-02-09] MEDS: CALCIUM CARBONATE 500 MG TAB.CHEW PO SCH (08:26)
[2021-02-09] MEDS: FAMOTIDINE 20 MG TABLET PO SCH (08:26)
[2021-02-09] MEDS: SODIUM CHLORIDE FLUSH 10ML SYR IVF SCH (08:26)
[2021-02-09] MEDS: POTASSIUM CHLORIDE 20 MEQ PACKET PO SCH (08:26)
[2021-02-09] MEDS: ASPIRIN 81 MG TABLET EC PO SCH (09:00)
[2021-02-09] MEDS ORDERED: ARANESP 60 MCG/ML **ESRD SQ SCH (10:30)
[2021-02-22] MEDS ORDERED: OMEP20TA62 PO (15:12)
[2021-03-10] MEDS ORDERED: [UNRECOGNIZED DRUG - OTHER] TP (12:40)
[2021-03-10] MEDS ORDERED: OXYC1TAB12 PO (12:40)
[2021-03-10] MEDS ORDERED: BACITRACIN TP (12:40)
[2021-03-10] MEDS ORDERED: CARV3.1212 PO (12:40)
[2021-03-10] MEDS ORDERED: INSU100I11 SQ-INSULIN (12:40)
== END 2021-02-09 11:10 | disposition home health service (06) | DRG 270 ==
LOC: ED 11:49 → EDIP 12:37 → SUATTDRO 12:51 → 3N 15:25
PROVIDERS: ADMIT Family Medicine; ATTEND Family Medicine
PROC: 3E1M39Z Irrigation of Peritoneal Cavity using Dialysate, Percutaneous Approach (ICD-10-PCS; 2021-02-01)
PROC: 3E1M39Z Irrigation of Peritoneal Cavity using Dialysate, Percutaneous Approach (ICD-10-PCS; 2021-02-02)
PROC: B41D1ZZ Fluoroscopy of Aorta and Bilateral Lower Extremity Arteries using Low Osmolar Contrast (ICD-10-PCS; 2021-02-03)
PROC: B41J1ZZ Fluoroscopy of Other Lower Arteries using Low Osmolar Contrast (ICD-10-PCS; 2021-02-03)
PROC: 04CR3ZZ Extirpation of Matter from Right Posterior Tibial Artery, Percutaneous Approach (ICD-10-PCS; 2021-02-03)
PROC: 3E1M39Z Irrigation of Peritoneal Cavity using Dialysate, Percutaneous Approach (ICD-10-PCS; 2021-02-03)
PROC: 0JBQ0ZZ Excision of Right Foot Subcutaneous Tissue and Fascia, Open Approach (ICD-10-PCS; principal; 2021-02-03 14:00)
PROC: 3E1M39Z Irrigation of Peritoneal Cavity using Dialysate, Percutaneous Approach (ICD-10-PCS; 2021-02-04)
PROC: 3E1M39Z Irrigation of Peritoneal Cavity using Dialysate, Percutaneous Approach (ICD-10-PCS; 2021-02-05)
PROC: 3E1M39Z Irrigation of Peritoneal Cavity using Dialysate, Percutaneous Approach (ICD-10-PCS; 2021-02-06)
PROC: 3E1M39Z Irrigation of Peritoneal Cavity using Dialysate, Percutaneous Approach (ICD-10-PCS; 2021-02-07)
DX: E11.51 Type 2 diabetes mellitus with diabetic peripheral angiopathy without gangrene (principal); N18.6 End stage renal disease; M86.172 Other acute osteomyelitis, left ankle and foot; E87.1 Hypo-osmolality and hyponatremia; L03.116 Cellulitis of left lower limb; L03.115 Cellulitis of right lower limb; I13.2 Hypertensive heart and chronic kidney disease with heart failure and with stage 5 chronic kidney disease, or end stage renal disease; L97.419 Non-pressure chronic ulcer of right heel and midfoot with unspecified severity; I70.234 Atherosclerosis of native arteries of right leg with ulceration of heel and midfoot; E11.69 Type 2 diabetes mellitus with other specified complication; E83.9 Disorder of mineral metabolism, unspecified; E11.22 Type 2 diabetes mellitus with diabetic chronic kidney disease; D64.9 Anemia, unspecified; E11.621 Type 2 diabetes mellitus with foot ulcer; E78.5 Hyperlipidemia, unspecified; E83.51 Hypocalcemia; E87.6 Hypokalemia; I25.10 Atherosclerotic heart disease of native coronary artery without angina pectoris; M48.07 Spinal stenosis, lumbosacral region; S30.1XXA Contusion of abdominal wall, initial encounter; I70.0 Atherosclerosis of aorta; I50.9 Heart failure, unspecified; W18.39XA Other fall on same level, initial encounter; I70.223 Atherosclerosis of native arteries of extremities with rest pain, bilateral legs; Z99.2 Dependence on renal dialysis; Z79.4 Long term (current) use of insulin; I25.2 Old myocardial infarction; Z79.02 Long term (current) use of antithrombotics/antiplatelets; Z79.82 Long term (current) use of aspirin; Z95.1 Presence of aortocoronary bypass graft; Y93.89 Activity, other specified; Y92.89 Other specified places as the place of occurrence of the external cause; Y99.8 Other external cause status
CPT/HCPCS: 36415; 96374; 99285; C8929; J3490; 37229; 72148; 75625; 75710; 75716; 80048; 80053; 80069; 82306; 82330; 82728; 82947; 82962; 83540; 83550; 83735; 83970; 84100; 84443; 85014; 85018; 85025; 85610; 85651; 86140; 86706; 87040; 87070; 87205; 87324; 87340; 87635; 90945; 93005; 93922; 93925; C1725; G0378; J0882; J1644; J2250; J2543; J3010; Q9957; C1714; C1751; C1769; C1894; J1815

== ENCOUNTER → 2021-02-22 | Outpatient (CLI) | payer OTHER ==
[~2021-02-22] MED LIST changes: +CALC0.5C2 PO; +CINA30TA6 PO; +OMEP20TA62 PO
[2021-02-22 15:37] LABS: BASOPHILS % (AUTO) 1 % (0-1); EOSINOPHILS % (AUTO) 2 % (1-7); LYMPHOCYTES % (AUTO) 6 % (22-44); MEAN CORPUSCULAR HGB CONC 31.9 g/dL (33.2-36.2); MEAN PLATELET VOLUME 7.4 fL (7.4-10.4); MONOCYTES % (AUTO) 7 % (2-9); NEUTROPHILS % (AUTO) 84 % (42-75); PLATELET COUNT 435 x10^3/uL (130-400); RED BLOOD COUNT 2.61 x10^6/uL (4.38-5.82); RED CELL DISTRIBUTION WIDTH 19.6 % (9.4-14.8)
[2021-02-22 15:48] LABS: ALBUMIN 1.7 g/dL (3.4-5.0); ANION GAP 13 mmol/L (5-15); CALCIUM 8.8 mg/dL (8.5-10.1); CHLORIDE 91 mmol/L (98-107)
[2021-02-22 15:49] LABS: INTERNATIONAL NORMALIZED RATIO 1.23 (0.93-1.1)
[2021-02-22 15:51] LABS: ALANINE AMINOTRANSFERASE 59 U/L (12-78); ALKALINE PHOSPHATASE 192 U/L (45-117); BILIRUBIN,TOTAL 0.4 mg/dL (0.2-1.0); CREATININE 6.96 mg/dL (0.7-1.3); TOTAL PROTEIN 6.7 g/dL (6.4-8.2)
== END | disposition home or self-care (01) ==
LOC: STAR 13:59
PROVIDERS: ATTEND Surgery Vascular Surgery
DX: Z01.812 Encounter for preprocedural laboratory examination (principal); Z20.822 Contact with and (suspected) exposure to COVID-19; N25.0 Renal osteodystrophy; R94.31 Abnormal electrocardiogram [ECG] [EKG]
CPT/HCPCS: 36415; 71046; 80053; 85025; 85610; 85730; 93005; U0003; U0005